=== PATIENT | male | born 1995 | race Caucasian/White ===

== ENCOUNTER 2023-07-29 07:29 | Day surgery (SDC) | payer OTHER, SELFPAY ==
[2023-07-29] VITALS (10 sets, daily range): BP systolic 117–141; BP diastolic 70–93; PULSE 64–115; RESP 14–20; TEMP 36.1–36.8; O2SAT 96–99; BMI 29.7
[2023-07-29] MEDS: LACTATED RINGERS 1000 ML 1,000 ML 100 ML IV (08:20)
[2023-07-29] MEDS: SODIUM CHLORIDE 0.9 % (FLUSH) 10 ML SYRINGE IVF (08:20)
--- NOTE | 2023-07-29 10:03 | W.ANESCHARGE ---
Anesthesia Charges Start Date/Time Anesthesia Start Date: 07/29/23 Anesthesia Start Time: 09:38 Stop Date/Time Anesthesia Stop Date: 07/29/23 Anesthesia Stop Time: 10:15
--- NOTE | 2023-07-29 10:18 | W.ANESCHARGE ---
Anesthesia Charges Start Date/Time Anesthesia Start Date: 07/29/23 Anesthesia Start Time: 09:38 Stop Date/Time Anesthesia Stop Date: 07/29/23 Anesthesia Stop Time: 10:15
--- NOTE | 2023-07-29 11:38 | W.PM.ENTPROC ---
Procedure Note Date of procedure: 07/29/23 Procedure: Preoperative diagnosis bilateral serous otitis media with conductive hearing loss Postoperative diagnosis same Procedure bilateral myringotomy with tubes Under general endotracheal anesthesia patient was prepped draped usual fashion. Left ear canal was inspected. The patient has a torturous ear canal which made it very difficult to visualize the lower tympanic membrane. The tube was placed in the anterior-inferior quadrant. First a myringotomy was made a large amount of serous and mucoid fluid was aspirated and a Duravent tube was placed. The right ear canal was inspected it was similarly tortuous. I was easily able to visualize the anterior superior quadrant and so the tube was placed airway with 1st a myringotomy followed by Duravent tube placement Ciprodex drops were placed in both ears. Blood loss 0. Surgeon: Bala Saucedo MD
== END 2023-07-29 11:42 | disposition home or self-care (01) ==
LOC: OR 07:31
PROVIDERS: PCP Family Medicine; Visit Provider Otolaryngology
PROC: (CPT 69420; principal; 2023-07-29 09:15)
DX: H65.93 Unspecified nonsuppurative otitis media, bilateral (principal); H90.0 Conductive hearing loss, bilateral
CPT/HCPCS: 69436; 00120; A9270; J0330; J1100; J2405; J2704; J3010; J7120

== ENCOUNTER 2025-03-08 07:39 | Day surgery (SDC) | payer OTHER, SELFPAY ==
[2025-03-08] VITALS (8 sets, daily range): BP systolic 119–139; BP diastolic 61–96; PULSE 66–100; RESP 12–16; TEMP 36.3–36.6; O2SAT 97–99; BMI 28.9
[2025-03-08] MEDS: SODIUM CHLORIDE 0.9 % (FLUSH) 10 ML SYRINGE IVF (08:05)
[2025-03-08] MEDS: LACTATED RINGERS 500 ML 500 ML 100 ML IV (08:05)
--- NOTE | 2025-03-08 09:10 | SUR.OPER ---
EAR TUBE REMOVED FROM THE RIGHT EAR.
--- NOTE | 2025-03-08 09:15 | P.ENTPROC_ITS ---
Procedure Note Date of procedure: 03/08/25 Procedure: Preop diagnosis bilateral serous otitis media, chronic bilateral otitis media, narrow ear canals Postoperative diagnosis occluded retained tube in right tympanic membrane with residual perforation after removal that was quite small, right serous otitis media and extremely narrow ear canals Procedure left myringotomy without tube placement due to difficulty accessing canal, removal of occluded right tube with inspection of ear Under general LMA anesthesia patient was prepped and draped in usual fashion. Left ear canal was inspected. It was sent to be extraordinarily narrow and difficult to access the tympanic membrane. I was able to perform myringotomy at the posterior inferior quadrant and removed a moderate amount of serous fluid. I was unable to place even a regular Duravent tube much less ET tube due to the narrowness of the canal. Drops were placed The right ear canal was inspected and anterior superiorly there was an occluded tube in the tympanic membrane. This was removed. A residual perforation calixto roximately the size of a tube os was present. This was there was no fluid present. Again I was unable to place a tube due to the narrowness of the canal. Drops were placed. Blood loss was less than 5 mL. Surgeon: Bala Saucedo MD
--- NOTE | 2025-03-08 09:22 | P.ANES_ITS ---
Anesthesia Charges Start Date/Time Anesthesia Start Date: 03/08/25 Anesthesia Start Time: 08:50 Stop Date/Time Anesthesia Stop Date: 03/08/25 Anesthesia Stop Time: 09:23 Coding CPT Codes CPT Codes: ANESTH EAR SURGERY - 68038 ([id number]) QK - MIXER ATTENDANT 2-4 CNCRNT ANES PROC, QX - MANUFACTURING ENGINEERING TECHNOLOGIST SVC W/ MD MED DIRECTION, P1 - NORMAL HEALTHY PATIENT
--- NOTE | 2025-03-08 09:22 | W.ANESCHARGE ---
Anesthesia Charges Start Date/Time Anesthesia Start Date: 03/08/25 Anesthesia Start Time: 08:50 Stop Date/Time Anesthesia Stop Date: 03/08/25 Anesthesia Stop Time: 09:23 Coding CPT Codes CPT Codes: ANESTH EAR SURGERY - 93128 ([id number]) QK - VETERINARY VIRUS SERUM INSPECTOR 2-4 CNCRNT ANES PROC, QX - PAINTER AIRCRAFT SVC W/ MD MED DIRECTION, P1 - NORMAL HEALTHY PATIENT
--- NOTE | 2025-03-08 09:25 | P.ANES_ITS ---
Anesthesia Charges Start Date/Time Anesthesia Start Date: 03/08/25 Anesthesia Start Time: 08:50 Stop Date/Time Anesthesia Stop Date: 03/08/25 Anesthesia Stop Time: 09:23 Coding CPT Codes CPT Codes: ANESTH EAR SURGERY - 42058 ([id number]) P1 - NORMAL HEALTHY PATIENT, QK - COUNSELOR SUPERVISOR 2-4 CNCRNT ANES PROC, QX - MARINE UNDERWRITER SVCiera W/ MED DIRECTION
--- NOTE | 2025-03-08 09:25 | W.ANESCHARGE ---
Anesthesia Charges Start Date/Time Anesthesia Start Date: 03/08/25 Anesthesia Start Time: 08:50 Stop Date/Time Anesthesia Stop Date: 03/08/25 Anesthesia Stop Time: 09:23 Coding CPT Codes CPT Codes: ANESTH EAR SURGERY - 36134 ([id number]) P1 - NORMAL HEALTHY PATIENT, QK - BLANKER PRESS OPERATOR 2-4 CNCRNT ANES PROC, QX - MAINFRAME APPLICATIONS DEVELOPER SVCeira W/ MED DIRECTION
--- NOTE | 2025-03-08 09:45 | SUR.PHASEI ---
patient met discharge criteria per anesthesia
== END 2025-03-08 10:18 | disposition home or self-care (01) ==
LOC: OR 07:40
PROVIDERS: PCP Family Medicine; Visit Provider Otolaryngology
PROC: (CPT 69420; principal; 2025-03-08 09:00)
DX: H65.23 Chronic serous otitis media, bilateral (principal); T85.698A Other mechanical complication of other specified internal prosthetic devices, implants and grafts, initial encounter
CPT/HCPCS: 69436; 00120; J2704; J3010; J7120